=== PATIENT | female | born 1960 | race American Indian/Alaskan Native ===

== ENCOUNTER 2022-07-10 13:17 | Emergency (ER) | payer BC, OTHER ==
[2022-07-10] MEDS ORDERED: Dexamethasone 10 MG/ML SDV IVPUSH ONE (15:02)
[2022-07-10] MEDS ORDERED: Cyclobenzaprine 10 MG Tab PO ONE (15:02)
[2022-07-10] MEDS ORDERED: HYDROmorphone 1 MG/ML Syringe IVPUSH ONE (15:02)
[2022-07-10] MEDS ORDERED: Ketorolac 30 MG/ML SDV IVPUSH ONE (15:02)
[2022-07-10] MEDS ORDERED: Ondansetron 4 MG/2 ML SDV IVPUSH ONE (15:49)
[2022-07-10 16:07] VITALS: BP 101/47; PULSE 70
== END 2022-07-10 16:07 | disposition home or self-care (01) ==
LOC: MW.ED 13:17
DX: M54.12 Radiculopathy, cervical region (principal); K21.9 Gastro-esophageal reflux disease without esophagitis; Z88.1 Allergy status to other antibiotic agents; Z79.899 Other long term (current) drug therapy
CPT/HCPCS: 96374; 96375; 99283; A9270; J1100; J1170; J1885; J2405